=== PATIENT | male | born 1935 | race Caucasian/White ===

== ENCOUNTER 2016-08-02 17:46 | Inpatient (IN) | payer MEDICARE ==
[2016-08-02 16:37] LABS: BASO % 0.8 % (0-2); BASO ABSOLUTE COUNT 0.1 tho/cmm (0.0-0.2); EOS % 5.1 % (0-7); EOSINOPHIL ABSOLUTE COUNT 0.3 tho/cmm (0.0-0.7); HCT-HEMATOCRIT 45.5 % (36.0-53.5); HGB-HEMOGLOBIN 14.8 gm/dl (13.5-17.0); IMMATURE GRANULOCYTES ABSOLUTE 0.01 tho/cmm (0-0.03); IMMATURE GRANULOCYTES PERCENT 0.2 % (0-0.3); LYMPH % 24.5 % (20-45); LYMPH ABSOLUTE COUNT 1.5 tho/cmm (0.8-4.5); MCH (MEAN CORPUSCULAR HGB) 29.9 pg (28.0-32.0); MCHC MEAN CORPUSCULAR HGB CONC 32.5 % (32.0-36.0); MCV (MEAN CELL VOLUME) 91.9 fl (82.0-96.0); MEAN PLATELET VOLUME 9.3 cmc (9.4-12.4); MONO % 14.6 % (0-12); MONOCYTE ABSOLUTE COUNT 0.9 tho/cmm (0.0-1.2); NEUTROPHIL ABSOLUTE COUNT 3.3 tho/cmm (1.6-8.0); NEUTROPHIL-AUTOMATED 3.3 tho/cmm (1.6-8.0); NEUTROPHILS % 54.8 % (40-80); PLATELET COUNT 303 tho/cmm (150-450); RED BLOOD COUNT 4.95 mil/cmm (4.40-5.70); RED CELL DISTRIBUTION WIDTH 13.7 % (12.4-16.4)
[2016-08-02 16:40] LABS: ABG CO2 ARTERIAL 32 mmol/L (21-27); ARTERIAL BLD GAS O2 SATURATION 97 % (95-98); ARTERIAL BLOOD GAS PCO2 66 mmHg (32-45); ARTERIAL PO2 100 mmHg (70-100); BICARBONATE 30 mmol/L (21-28); BLOOD GAS BASE EXCESS 1 mM/L (-/+3); PH 7.28 Units (7.35-7.45)
[2016-08-02 16:56] LABS: BLOOD UREA NITROGEN 17 mg/dl (6-24); CALCIUM 9.6 mg/dl (8.5-10.5); CARBON DIOXIDE-VENOUS 30 mmol/L (22-32); CHLORIDE 101 mmol/l (96-110); CREATININE 1.22 mg/dl (0.60-1.30); GLUCOSE 132 mg/dL (70-110); SODIUM 138 mmol/L (135-145); eGFR VALUE FOR BLACK 64 mL/Min
[2016-08-02 17:01] LABS: ANION GAP 11 mmol/L (0-20)
[2016-08-02 17:02] LABS: POTASSIUM 4.4 mmol/L (3.7-5.1)
[~2016-08-02 17:46] MED LIST: ANORO ELLIPTA1 EAC1 INH; ASPIR 8181 M1 PO; AUGMENTIN875 MG PO; BACTRIM DS1 TA1 PO; FISH OIL 11000 MG/CA PO; IPRAT-ALBUT 0.5-3 ML INH; MAXZIDE 37.5 M1 EAC1 PO; PRENATAL VITAMI1 TAB PO; PROAIR HFA8.5 GM INH; PROPAFENONE HC225 M1 PO; RYTHMOL SR325 MG PO; TYLENOL325 M2 PO; VERAPAMIL ER240 M2 PO; VITAMIN D31000 UNI3 PO; ZOCOR40 M1 PO
[2016-08-02 18:24] LABS: ABG CO2 ARTERIAL 34 mmol/L (21-27); ARTERIAL BLD GAS O2 SATURATION 93 % (95-98); BICARBONATE 32 mmol/L (21-28); BLOOD GAS BASE EXCESS 3 mM/L (-/+3); PH 7.27 Units (7.35-7.45)
[2016-08-02 18:25] LABS: ARTERIAL BLOOD GAS PCO2 72 mmHg (32-45); ARTERIAL PO2 76 mmHg (70-100)
[2016-08-02 20:29] LABS: ARTERIAL BLD GAS O2 SATURATION 99 % (95-98); BLOOD GAS BASE EXCESS 0 mM/L (-/+3); PH 7.35 Units (7.35-7.45)
[2016-08-02 20:31] LABS: ABG CO2 ARTERIAL 27 mmol/L (21-27); ARTERIAL BLOOD GAS PCO2 47 mmHg (32-45); ARTERIAL PO2 247 mmHg (70-100); BICARBONATE 25 mmol/L (21-28)
[2016-08-03 00:35] LABS: URINE APPEARANCE CLOUDY; URINE BILIRUBIN SMALL (NEG); URINE BLOOD SMALL (NEG); URINE COLOR YELLOW; URINE GLUCOSE (UA) NEGATIVE (NEG); URINE KETONE MODERATE (NEG); URINE LEUKOCYTE ESTERASE POSITIVE (NEG); URINE NITRITE NEGATIVE (NEG); URINE PROTEIN MODERATE (NEG); URINE SPECIFIC GRAVITY 1.015 (1.003-1.030)
[2016-08-03 00:45] LABS: URINE BACTERIA 1+; URINE MUCUS 3+
[2016-08-03 04:24] LABS: EOS % 0.2 % (0-7); HCT-HEMATOCRIT 36.9 % (36.0-53.5); HGB-HEMOGLOBIN 12.1 gm/dl (13.5-17.0); IMMATURE GRANULOCYTES ABSOLUTE 0.01 tho/cmm (0-0.03); IMMATURE GRANULOCYTES PERCENT 0.2 % (0-0.3); LYMPH % 9.8 % (20-45); LYMPH ABSOLUTE COUNT 0.5 tho/cmm (0.8-4.5); MCH (MEAN CORPUSCULAR HGB) 29.9 pg (28.0-32.0); MCHC MEAN CORPUSCULAR HGB CONC 32.8 % (32.0-36.0); MCV (MEAN CELL VOLUME) 91.1 fl (82.0-96.0); MEAN PLATELET VOLUME 9.3 cmc (9.4-12.4); MONO % 2.8 % (0-12); MONOCYTE ABSOLUTE COUNT 0.1 tho/cmm (0.0-1.2); NEUTROPHIL ABSOLUTE COUNT 4.4 tho/cmm (1.6-8.0); NEUTROPHIL-AUTOMATED 4.4 tho/cmm (1.6-8.0); PLATELET COUNT 224 tho/cmm (150-450); RED BLOOD COUNT 4.05 mil/cmm (4.40-5.70); RED CELL DISTRIBUTION WIDTH 13.8 % (12.4-16.4); WHITE BLOOD COUNT 5.1 tho/cmm (4.0-10.0)
[2016-08-03 04:54] LABS: ALB/GLOB RATIO 0.9 (0.8-2.0); ALBUMIN 3.1 g/dl (3.5-5.0); ALKALINE PHOSPHATASE 65 U/L (33-138); ALT/SGPT 23 U/L (12-78); ANION GAP 12 mmol/L (0-20); AST/SGOT 16 U/L (10-40); BILIRUBIN,TOTAL 0.3 mg/dl (0.0-1.5); BLOOD UREA NITROGEN 22 mg/dl (6-24); C-REACTIVE PROTEIN 0.5 mg/dl (0-0.9); CALCIUM 8.5 mg/dl (8.5-10.5); CARBON DIOXIDE-VENOUS 27 mmol/L (22-32); CHLORIDE 104 mmol/l (96-110); CREATININE 1.28 mg/dl (0.60-1.30); POTASSIUM 3.9 mmol/L (3.7-5.1); SODIUM 139 mmol/L (135-145); eGFR VALUE FOR BLACK 61 mL/Min
[2016-08-03 05:20] LABS: GLUCOSE 213 mg/dL (70-110)
[2016-08-03 05:28] LABS: ABG CO2 ARTERIAL 25 mmol/L (21-27); ARTERIAL BLD GAS O2 SATURATION 98 % (95-98); BICARBONATE 24 mmol/L (21-28); BLOOD GAS BASE EXCESS 1 mM/L (-/+3); PH 7.45 Units (7.35-7.45)
[2016-08-03 05:30] LABS: ARTERIAL BLOOD GAS PCO2 36 mmHg (32-45); ARTERIAL PO2 98 mmHg (70-100)
[2016-08-03 06:08] LABS: ESR-ERYTHROCYTE SED RATE 13 mm/hr (0-20)
[2016-08-03 15:45] LABS: ABG CO2 ARTERIAL 25 mmol/L (21-27); ARTERIAL BLD GAS O2 SATURATION 96 % (95-98); ARTERIAL BLOOD GAS PCO2 39 mmHg (32-45); BICARBONATE 24 mmol/L (21-28); BLOOD GAS BASE EXCESS 0 mM/L (-/+3); PH 7.41 Units (7.35-7.45)
[2016-08-03 15:46] LABS: ARTERIAL PO2 77 mmHg (70-100)
[2016-08-04 04:55] LABS: EOS % 0.1 % (0-7); HCT-HEMATOCRIT 35.1 % (36.0-53.5); HGB-HEMOGLOBIN 11.2 gm/dl (13.5-17.0); IMMATURE GRANULOCYTES ABSOLUTE 0.01 tho/cmm (0-0.03); IMMATURE GRANULOCYTES PERCENT 0.1 % (0-0.3); LYMPH % 8.4 % (20-45); LYMPH ABSOLUTE COUNT 0.7 tho/cmm (0.8-4.5); MCH (MEAN CORPUSCULAR HGB) 29.2 pg (28.0-32.0); MCHC MEAN CORPUSCULAR HGB CONC 31.9 % (32.0-36.0); MCV (MEAN CELL VOLUME) 91.6 fl (82.0-96.0); MEAN PLATELET VOLUME 9.5 cmc (9.4-12.4); MONO % 5.7 % (0-12); MONOCYTE ABSOLUTE COUNT 0.5 tho/cmm (0.0-1.2); NEUTROPHIL ABSOLUTE COUNT 6.8 tho/cmm (1.6-8.0); NEUTROPHIL-AUTOMATED 6.8 tho/cmm (1.6-8.0); NEUTROPHILS % 85.7 % (40-80); PLATELET COUNT 212 tho/cmm (150-450); RED BLOOD COUNT 3.83 mil/cmm (4.40-5.70); RED CELL DISTRIBUTION WIDTH 14.3 % (12.4-16.4)
[2016-08-04 05:16] LABS: WHITE BLOOD COUNT 7.9 tho/cmm (4.0-10.0)
[2016-08-04 05:27] LABS: ANION GAP 12 mmol/L (0-20); BLOOD UREA NITROGEN 18 mg/dl (6-24); CALCIUM 8.3 mg/dl (8.5-10.5); CARBON DIOXIDE-VENOUS 26 mmol/L (22-32); CHLORIDE 107 mmol/l (96-110); CREATININE 0.93 mg/dl (0.60-1.30); GLUCOSE 146 mg/dL (70-110); POTASSIUM 4.2 mmol/L (3.7-5.1); SODIUM 141 mmol/L (135-145); TRIGLYCERIDES 88 mg/dl (<149); eGFR VALUE FOR BLACK 90 mL/Min
[2016-08-05 05:17] LABS: ABG CO2 ARTERIAL 22 mmol/L (21-27); ARTERIAL BLD GAS O2 SATURATION 96 % (95-98); ARTERIAL BLOOD GAS PCO2 40 mmHg (32-45); ARTERIAL PO2 80 mmHg (70-100); BICARBONATE 24 mmol/L (21-28); BLOOD GAS BASE EXCESS 0 mM/L (-/+3)
[2016-08-05 05:32] LABS: ANION GAP 11 mmol/L (0-20); BLOOD UREA NITROGEN 22 mg/dl (6-24); CALCIUM 8.1 mg/dl (8.5-10.5); CARBON DIOXIDE-VENOUS 26 mmol/L (22-32); CHLORIDE 106 mmol/l (96-110); CREATININE 0.92 mg/dl (0.60-1.30); GLUCOSE 160 mg/dL (70-110); POTASSIUM 4.3 mmol/L (3.7-5.1); SODIUM 139 mmol/L (135-145); eGFR VALUE FOR BLACK >90 mL/Min
--- NOTE | 2016-08-05 12:55 | NUR ---
0945 READY FOR ANNABEL, AND ECHO HERE AND READY PT. DR QUINONES HERE AND 2 VERSED AND 25 FENT GIVEN, REPEATED 25 FENT AND ALSO 1 VERSED GIVEN IV SEE FLOW SHEET FOR REQUENT VS, OXYGEN INCREASED TO 5L DURRING ANNABEL AND THEN DECREASED AFTERWARDS.
[2016-08-06 04:39] LABS: HCT-HEMATOCRIT 36.9 % (36.0-53.5); HGB-HEMOGLOBIN 12.2 gm/dl (13.5-17.0); IMMATURE GRANULOCYTES ABSOLUTE 0.03 tho/cmm (0-0.03); IMMATURE GRANULOCYTES PERCENT 0.5 % (0-0.3); LYMPH % 10.5 % (20-45); LYMPH ABSOLUTE COUNT 0.7 tho/cmm (0.8-4.5); MCH (MEAN CORPUSCULAR HGB) 29.8 pg (28.0-32.0); MCHC MEAN CORPUSCULAR HGB CONC 33.1 % (32.0-36.0); MEAN PLATELET VOLUME 9.5 cmc (9.4-12.4); MONOCYTE ABSOLUTE COUNT 0.6 tho/cmm (0.0-1.2); NEUTROPHIL ABSOLUTE COUNT 5.2 tho/cmm (1.6-8.0); NEUTROPHIL-AUTOMATED 5.2 tho/cmm (1.6-8.0); PLATELET COUNT 229 tho/cmm (150-450); RED CELL DISTRIBUTION WIDTH 13.7 % (12.4-16.4); WHITE BLOOD COUNT 6.5 tho/cmm (4.0-10.0)
[2016-08-06 04:49] LABS: BLOOD UREA NITROGEN 31 mg/dl (6-24); CALCIUM 8.5 mg/dl (8.5-10.5); CARBON DIOXIDE-VENOUS 32 mmol/L (22-32); CHLORIDE 99 mmol/l (96-110); GLUCOSE 158 mg/dL (70-110); SODIUM 137 mmol/L (135-145); eGFR VALUE FOR BLACK 63 mL/Min
[2016-08-06 05:07] LABS: ANION GAP 11 mmol/L (0-20); CREATININE 1.25 mg/dl (0.60-1.30); POTASSIUM 4.8 mmol/L (3.7-5.1)
[2016-08-07] MEDS ORDERED: ZESTRIL2.5 M3 PO (12:33)
[2016-08-07] MEDS ORDERED: DULERA 200 MCG/13 G1 INH (12:33)
[2016-08-07] MEDS ORDERED: SINGULAIR10 M1 PO (12:34)
[2016-08-07] MEDS ORDERED: PREDNISONE10 M1 PO (12:37)
== END 2016-08-07 13:30 | DRG 208 ==
LOC: EDMED 17:46 → EMR2 18:14 → CCU 19:33
PROVIDERS: Emergency Medicine; Family Medicine; Internal Medicine; Internal Medicine Critical Care Medicine; Internal Medicine Pulmonary Disease; ADMIT Hospitalist
PROC: 0BH17EZ Insertion of Endotracheal Airway into Trachea, Via Natural or Artificial Opening (ICD-10-PCS; principal; 2016-08-02)
PROC: 5A1935Z Respiratory Ventilation, Less than 24 Consecutive Hours (ICD-10-PCS; 2016-08-02)
DX: J96.02 Acute respiratory failure with hypercapnia (principal); E87.4 Mixed disorder of acid-base balance; J44.9 Chronic obstructive pulmonary disease, unspecified; I48.0 Paroxysmal atrial fibrillation; I27.2 Other secondary pulmonary hypertension; I16.1 Hypertensive emergency; E66.9 Obesity, unspecified; Z85.46 Personal history of malignant neoplasm of prostate; E78.5 Hyperlipidemia, unspecified; Z87.891 Personal history of nicotine dependence; J96.01 Acute respiratory failure with hypoxia; N18.9 Chronic kidney disease, unspecified; I12.9 Hypertensive chronic kidney disease with stage 1 through stage 4 chronic kidney disease, or unspecified chronic kidney disease; Z68.33 Body mass index [BMI] 33.0-33.9, adult; Z79.82 Long term (current) use of aspirin; I34.0 Nonrheumatic mitral (valve) insufficiency; J45.909 Unspecified asthma, uncomplicated
CPT/HCPCS: C1751; C1758; C9113; J0330; J0360; J1650; J1815; J1940; J1956; J2060; J2250; J2704; J2920; J2930; J3010; J7030; J7040